=== PATIENT | female | born 1990 | race Caucasian/White ===

== ENCOUNTER 2019-12-12 11:01 | Emergency (ER) | payer MEDICAID ==
[~2019-12-12] VITALS: Ht 165.1 cm; Wt 58.1 kg
[2019-12-12 11:10] VITALS: BP 115/75
--- NOTE | 2019-12-12 11:15 | NUR ---
29 YEAR OLD FEMALE COMPLAINS OF BLEEDING IN URINATION SINCE YESTERDAY. PT STATES SHE THOUGHT SHE HAD A YEAST INFECTION AND SO SHE STARTED TO TAKE MEDICATION FOR IT 3 DAYS AGO BUT YESTERDAY SHE STARTED SEEING BLOOD IN URINE. PT DENIES ANY FLANK OR ABDOMINAL PAIN, DENIES ODOR IN URINE. PT STATES PAIN IS CONTINOUS AND WHEN URINATING. PT AOX4, BREATHING EVEN AND UNLABORED, SKIN WARM AND DRY. BED IN LOWEST POSITION, LOCKED, BED RAIL UPX1. PMH - DENIES ALLERGIES - NKA
--- NOTE | 2019-12-12 11:56 | NUR ---
PER ERMD HE WANTS URINE DIP REDONE AND STRAIGHT CATH FOR URINE INSTEAD OF VOIDED URINE. PT GIVEN WATER, ANOTHER FEMALE NURSE WILL STRAIGHT CATH PT SOON. PT AWARE
--- NOTE | 2019-12-12 12:24 | NUR ---
# 8 FR straight catheter inserted utilizing sterile technique. Immediate return of clear yellow urine noted. Catheter removed. Urine sample collected and sent to lab. Pt tolerated procedure well. Patient assisted back into position of comfort.
[2019-12-12 12:45] LABS: APPEARANCE,URINE CLEAR (CLEAR); BILIRUBIN,URINE NEGATIVE (NEGATIVE); BLOOD, URINE 2+ (NEGATIVE); COLOR,URINE YELLOW (YELLOW); LEUKOCYTE ESTERASE ,URINE NEGATIVE (NEGATIVE); NITRITE, URINE NEGATIVE (NEGATIVE); UGLUCOSE NEGATIVE (NEGATIVE)
[2019-12-12 13:40] LABS: RBC,URINE 11-20 (MOD) /HPF (0-5); WBC,URINE 0-5 /HPF (0-5)
--- NOTE | 2019-12-12 14:20 | NUR ---
PT TAKEN TO CT
[2019-12-12] MEDS ORDERED: cefTRIAXone 250 MG in LIDOCAINE MPF 1% 0.9 ML IM ONE (14:55)
[2019-12-12] MEDS ORDERED: AZITHROMYCIN 250 MG TAB PO ONE (14:55)
[2019-12-12] MEDS ORDERED: LIDOCAINE MPF 1% 5 ML ONE (14:57)
[2019-12-12] MEDS ORDERED: cefTRIAXone 250 MG VIAL ONE (14:57)
[2019-12-12] MEDS ORDERED: IBUPROFEN 800 MG TAB PO ONE (15:05)
--- NOTE | 2019-12-12 15:40 | NUR ---
Patient discharged with v/s stable. Written and verbal after care instructions about urinary tract infections given and explained. Patient alert, oriented and verbalized understanding of instructions. Ambulatory with steady gait. All questions addressed prior to discharge. ID band removed. Patient advised to follow up with PMD. Rx of motrin, diflucan, keflex given. Patient educated on indication of medication including possible reaction and side effects. Opportunity to ask questions provided and answered.
[2019-12-12 15:42] VITALS: BP 116/80
== END 2019-12-12 15:40 | disposition home or self-care (01) ==
LOC: MED 11:01
DX: N30.91 Cystitis, unspecified with hematuria (principal)
CPT/HCPCS: 36415; 74176; 81001; 81025; 96372; 99284; J0696; J2001